=== PATIENT | male | born 1985 | race Caucasian/White ===

== ENCOUNTER 2023-12-11 09:00 | Outpatient (RCR) | payer OTHER, SELFPAY ==
--- NOTE | 2023-11-20 14:32 | OT.OP.EVAL ---
Visit Care Team Role Provider Type Sea Babb DO Attending Provider Non-Staff Family Provider Primary Care Provider Referring Provider Specialty: Family Practice Address: [address] [place] [address], [place], [address] Fax: Email: Occupational Therapy Initial Evaluation OT Outpatient Adult Evaluation Start: 11/20/23 09:47 Freq: Status: Active Protocol: Document 11/20/23 09:47 AMS (Rec: 11/20/23 09:48 AMS [id number]) General Information - Adult Visit Number [id number] Plan of Care Dates 11/20/23 - 01/01/24 Insurance Information Prime; *Auth x 12 visits Visit Start Time 09:00 Visit Stop Time 09:30 Treatment Setting Outpatient Care Note Type Initial Evaluation Referring Physician Sea Babb MD Reason for Referral [employer] w/ bilateral hand paresthesias concern for cubital tunnel syndrome Identification Confirmed Yes Identification Confirmed By Self Goals Short Term Goals 1. Francisco will demonstrate improved range of motion of L wrist which will support participation in meaningful activities: 1a. 0-60 degrees active L wrist ext vs initial 0-55 degrees active L wrist ext. Jail Goals 1. Francisco will be modified independent w/ execution of home exercise program utilizing written/visual instructions as needed. 2. Francisco will be able to verbalize understanding of activity modifications to prevent exacerbation of symptoms. Assessment/Plan Treatment Assessment Francisco is 38 y.o.; right hand dominant. He was referred to outpatient OT d/t bilateral hand paresthesias w/ concern for cubital tunnel syndrome. He is active duty ; he fufills a number of different roles. Symptoms have been present in L UE x 5 years; symptoms have been present in R UE for the past 6 months. He reports wearing CPAP machine at night; sleeps on back and awakes with both arms numb. He reported obtaining an EMG 7-8 months ago in [place] which confirmed R cubital tunnel syndrome diagnosis. Medical History Form completed; significant for back and neck pain and hearing problems. Whole Body Pain Assessment Grid completed; indication of 6-7 out of 10 pain relative to volar surfaces of elbow -> 4- 5th digits of hands bilaterally. 6-7 out of 10 pain relative to dorsal neck and middle spine. Hand/Wrist Pain Assessment Grid completed ; indication of 6-10 on pain scale relative to volar/dorsal surfaces of bilateral wrists and 4th/5th digits of the hand (s). QuickDASH UE Outcome Measure Score = 25.00; QuickDASH UE Work Module Score (P-3C Spray Pilot) = 50.00. Slight abd of the R 5th digit noted; (-) abd of the L 5th digit. Slight abduction of R 5th abd intermittently w/ tendon gliding as well. (+) flexion bilaterally of IPJs w/ lateral gibson pinch strength testing. Report of repoduction of symptoms of numbness with elbows bilaterally flexed w/ wrists in neutral. (-) clawing of fingers present. Goniometer Measurements = 0-63 degrees active R wrist ext vs 0-55 degrees active L wrist ext. 0-45 degrees active R wrist flex vs 0-48 degrees active L wrist flex. 0-25 degrees active bilateral wrist UD. 0-15 degrees active bilateral wrist [address]. Strength testing results = 5/5 for bilateral wrist flex, wrist ext, wrist RD, wrist UD. Dynamometer II loan examiner strength testing results w/ elbows in 90 degrees flexion = 75.0# of force R loan examiner (compared to 35- 39 y.o. male norms 119.7 +/- 24.0) vs 86.0# of force L loan examiner (compared to 35-39 y.o. male norms 112.9 +/- 21.7). Dynamometer II loan examiner strength testing results w/ elbows in extension = 99.0# of force R loan examiner vs 86.0# of force L loan examiner. Pinchometer strength testing results = 21.0# of force R lateral gibson pinch (compared to 35-39 y.o. male norms 26.1 +/ - 3.2) vs 24.0# of force ( compared to 35-39 y.o. male norms 25.6 +/- 3.9). 17.5# of force R 3-jaw pinch (compared to 35-39 y.o. male norms 26.2 +/- 4.1) vs 19.5# of force L 3 -jaw pinch (compared to 35-39 y.o. male norms 25.9 +/- 5.4). 12.5# of force R tip pinch ( compared to 35-39 y.o. male norms 18.0 +/- 3.6) vs 15.0# of force (compared to 35-39 y. o. male 17.7 +/- 3.8). Home Exercise Program 11/20/23 = Instructed in passive wrist flex w/ elbow in 90 degrees flex and forearm pronated and passive wrist ext w/ elbow in 90 degrees flex and forearm supinated w/ hold of 20-30 sec for each stretch, completed bilaterally. Instructed in alternative passive wrist ext stretch w/ elbow in 90 degrees flex and forearm supinated w/ use of TT , w/ again hold of 20-30 sec. Rec complete as needed. Rec consideration of Heelbo elbow cushion pad and limiting repetitive elbow flex/ext as able to do so. Length of treatment (weeks) 6 Plan of Care Start Date 11/20/23 Plan of Care End Date 01/01/24 Treatment Frequency Once a Week Therapeutic Contents Active Range of Motion, Adaptive Equipment Education, Functional Activities,Home Exercise Program,Joint Protection,Manual Therapy, Education,Neurodevelopment Treatment,Neuromuscular Re- Education,Self-Care,Stretching /Flexibility Activities, Therapeutic Activities, Therapeutic Exercises, Modalities Modalities As Needed,As Prescribed Additional Types of Modalities Heat/Ice/Contrast baths/ Ultrasound
--- NOTE | 2023-11-27 12:07 | OT.OP.TRT ---
Visit Care Team Role Provider Type Sea Babb DO Attending Provider Non-Staff Family Provider Primary Care Provider Referring Provider Specialty: Family Practice Address: [address] [place] [address], [place], [address] Fax: Email: Occupational Therapy Treatment Note OT Outpatient Treatment Note - Adult Start: 11/20/23 09:47 Freq: Status: Active Protocol: Document 11/27/23 11:51 AMS (Rec: 11/27/23 12:07 AMS [id number]) OT Outpatient Adult Treatment Note Session Time Visit Start Time 09:00 Visit Stop Time 09:40 Visit Information Visit Number [id number] Plan of Care Dates 11/20/23 - 01/01/24 Insurance Information Prime; *Auth x 12 visits Setting Treatment Setting Outpatient Care Visit Type Note Type Treatment Note General Information General Information Francisco is 38 y.o.; right hand dominant. He was referred to outpatient OT d/t bilateral hand paresthesias w/ concern for cubital tunnel syndrome. He is active duty ; he fufills a number of different roles. Symptoms have been present in L UE x 5 years; symptoms have been present in R UE for the past 6 months. He reports wearing CPAP machine at night; sleeps on back and awakes with both arms numb. He reported obtaining an EMG 7-8 months ago in [place] which confirmed R cubital tunnel syndrome diagnosis. Medical History Form completed; significant for back and neck pain and hearing problems. - Subjective Identification Type Name Identification Reconciled With Medical Record Observations Francisco was accompanied by one of his children to treatment session. Reported more discomfort of R elbow particularly when trying to sleep. Reported that Gabapentin was not helping. Difficulties w/ pulling circuit breakers; counts circuit breakers as a compensatory strategy. - Objective Objective Measurements Please refer to below for progress towards meeting established OT goals: Short Term Goals 1. Francisco will demonstrate improved range of motion of L wrist which will support participation in meaningful activities: 1a. 0-60 degrees active L wrist ext vs initial 0-55 degrees active L wrist ext. Senior Living Goals 1. Francisco will be modified independent w/ execution of home exercise program utilizing written/visual instructions as needed. 2. Francisco will be able to verbalize understanding of activity modifications to prevent exacerbation of symptoms. - Exercises 3 Descriptor Firm, blue theraputty. 2 Descriptor Passive ROM. Passive wrist ext bilaterally. Elbow flexion. Use of edge of TT. 20 sec hold. Passive wrist ext bilaterally. Elbow ext/forearm supination. Use of edge of TT. 20 sec hold. Passive wrist flex. Elbow ext/ forearm pronation. 20 sec hold . Completed bilaterally. Passive wrist RD w/ use of TT. Elbow near full ext/forearm pronation. 20 sec hold. Completed bilaterally. Passive wrist UD w/ use of TT. Elbow near full ext/forearm pronation. 20 sec hold. Completed bilaterally. Tendon glides. x 5 cycles. 1 Descriptor UEB x 7 minutes. Seated. - Assessment Assessment of Improvement Advanced HEP; provided w/ personal blue, firm theraputty for home use. Instructed in care and storage. (-) complaints of pain/discomfort w/ use of putty w/ various exercises. (-) signs of weakness observed w/ thumb abd , opposition, thumb/5th digit flex, or 5th digit abduction. Did briefly discuss use of towel to reduce elbow flex at night; reviewed avoiding static elbow flex, resting/ leaning on elbows positioned on hard surfaces, and repetitive elbow flex/ext. Advance as tolerated. Home Exercise Program 11/27/23 = Rec avoiding static elbow flexion posture, resting or leaning on elbow(s) onto hard surfaces, and repetitive elbow flex/ext. Rec trying to reduce elbow flex at night when sleeping. Provided w/ firm, blue theraputty; instructed in care and storage . Instructed in digit flex, thumb abd, 5th digit abd, thumb ext, lat gibson pinch, tip/ oppositional pinch, digit ext, hook fist w/ use of putty. Rec consideration of thicker width rubberband as an alt to putty w/ 'loop'/rosebud based exercises. Rec x 5-10 min per hand. 11/20/23 = Instructed in passive wrist flex w/ elbow in 90 degrees flex and forearm pronated and passive wrist ext w/ elbow in 90 degrees flex and forearm supinated w/ hold of 20-30 sec for each stretch, completed bilaterally. Instructed in alternative passive wrist ext stretch w/ elbow in 90 degrees flex and forearm supinated w/ use of TT , w/ again hold of 20-30 sec. Rec complete as needed. Rec consideration of Heelbo elbow cushion pad for during the day . - Plan Therapy Recommendations Advance per Rehabilitation Protocol
--- NOTE | 2023-12-11 10:45 | OT.OP.DC ---
Visit Care Team Role Provider Type Sea Babb DO Attending Provider Non-Staff Family Provider Primary Care Provider Referring Provider Address: [address] [place] [address], [place], [address] Fax: Email: OT Outpatient OT Outpatient Adult Evaluation Start: 11/20/23 09:47 Freq: Status: Active Protocol: Document 11/20/23 09:47 AMS (Rec: 11/20/23 09:48 AMS [id number]) General Information - Adult Visit Information Visit Number [id number] Plan of Care Dates 11/20/23 - 01/01/24 Insurance Information Prime; *Auth x 12 visits Session Time Visit Start Time 09:00 Visit Stop Time 09:30 Setting Treatment Setting Outpatient Care Visit Type Note Type Initial Evaluation Referral Referring Physician Sea Babb MD Reason for Referral [employer] w/ bilateral hand paresthesias concern for cubital tunnel syndrome Identification Identification Confirmed Yes Identification Confirmed By Self Goals Short Term Goals Short Term Goals 1. Francisco will demonstrate improved range of motion of L wrist which will support participation in meaningful activities: 1a. 0-60 degrees active L wrist ext vs initial 0-55 degrees active L wrist ext. Photographer Model Goals Photographer Model Goals 1. Francisco will be modified independent w/ execution of home exercise program utilizing written/visual instructions as needed. 2. Francisco will be able to verbalize understanding of activity modifications to prevent exacerbation of symptoms. Assessment/Plan Assessment Treatment Assessment Francisco is 38 y.o.; right hand dominant. He was referred to outpatient OT d/t bilateral hand paresthesias w/ concern for cubital tunnel syndrome. He is active duty ; he fufills a number of different roles. Symptoms have been present in L UE x 5 years; symptoms have been present in R UE for the past 6 months. He reports wearing CPAP machine at night; sleeps on back and awakes with both arms numb. He reported obtaining an EMG 7-8 months ago in [place] which confirmed R cubital tunnel syndrome diagnosis. Medical History Form completed; significant for back and neck pain and hearing problems. Whole Body Pain Assessment Grid completed; indication of 6-7 out of 10 pain relative to volar surfaces of elbow -> 4- 5th digits of hands bilaterally. 6-7 out of 10 pain relative to dorsal neck and middle spine. Hand/Wrist Pain Assessment Grid completed ; indication of 6-10 on pain scale relative to volar/dorsal surfaces of bilateral wrists and 4th/5th digits of the hand (s). QuickDASH UE Outcome Measure Score = 25.00; QuickDASH UE Work Module Score (P-3C Operations Representative) = 50.00. Slight abd of the R 5th digit noted; (-) abd of the L 5th digit. Slight abduction of R 5th abd intermittently w/ tendon gliding as well. (+) flexion bilaterally of IPJs w/ lateral gibson pinch strength testing. Report of repoduction of symptoms of numbness with elbows bilaterally flexed w/ wrists in neutral. (-) clawing of fingers present. Goniometer Measurements = 0-63 degrees active R wrist ext vs 0-55 degrees active L wrist ext. 0-45 degrees active R wrist flex vs 0-48 degrees active L wrist flex. 0-25 degrees active bilateral wrist UD. 0-[address] wrist [address]. Strength testing results = 5/5 for bilateral wrist flex, wrist ext, wrist RD, wrist UD. Dynamometer II sap bi developer strength testing results w/ elbows in 90 degrees flexion = 75.0# of force R sap bi developer (compared to 35- 39 y.o. male norms 119.7 +/- 24.0) vs 86.0# of force L sap bi developer (compared to 35-39 y.o. male norms 112.9 +/- 21.7). Dynamometer II sap bi developer strength testing results w/ elbows in extension = 99.0# of force R sap bi developer vs 86.0# of force L sap bi developer. Pinchometer strength testing results = 21.0# of force R lateral gibson pinch (compared to 35-39 y.o. male norms 26.1 +/ - 3.2) vs 24.0# of force ( compared to 35-39 y.o. male norms 25.6 +/- 3.9). 17.5# of force R 3-jaw pinch (compared to 35-39 y.o. male norms 26.2 +/- 4.1) vs 19.5# of force L 3 -jaw pinch (compared to 35-39 y.o. male norms 25.9 +/- 5.4). 12.5# of force R tip pinch ( compared to 35-39 y.o. male norms 18.0 +/- 3.6) vs 15.0# of force (compared to 35-39 y. o. male 17.7 +/- 3.8). Home Exercise Program 11/20/23 = Instructed in passive wrist flex w/ elbow in 90 degrees flex and forearm pronated and passive wrist ext w/ elbow in 90 degrees flex and forearm supinated w/ hold of 20-30 sec for each stretch, completed bilaterally. Instructed in alternative passive wrist ext stretch w/ elbow in 90 degrees flex and forearm supinated w/ use of TT , w/ again hold of 20-30 sec. Rec complete as needed. Rec consideration of Heelbo elbow cushion pad and limiting repetitive elbow flex/ext as able to do so. Plan Length of treatment (weeks) 6 Plan of Care Start Date 11/20/23 Plan of Care End Date 01/01/24 Treatment Frequency Once a Week Therapeutic Contents Active Range of Motion, Adaptive Equipment Education, Functional Activities,Home Exercise Program,Joint Protection,Manual Therapy, Education,Neurodevelopment Treatment,Neuromuscular Re- Education,Self-Care,Stretching /Flexibility Activities, Therapeutic Activities, Therapeutic Exercises, Modalities Modalities As Needed,As Prescribed Additional Types of Modalities Heat/Ice/Contrast baths/ Ultrasound Functional Wrist/Hand Scan Hand Side Sensory Assessment Sensory Profile2 OT Outpatient Treatment Note - Adult Start: 11/20/23 09:47 Freq: Status: Active Protocol: Document 12/11/23 10:39 AMS (Rec: 12/11/23 10:45 AMS [id number]) OT Outpatient Adult Treatment Note Session Time Visit Start Time 09:00 Visit Stop Time 09:45 Visit Information Visit Number 3 Plan of Care Dates 11/20/23 - 01/01/24 Insurance Information Prime; *Auth x 12 visits Setting Treatment Setting Outpatient Care Visit Type Note Type Treatment Note General Information General Information Francisco is 38 y.o.; right hand dominant. He was referred to outpatient OT d/t bilateral hand paresthesias w/ concern for cubital tunnel syndrome. He is active duty ; he fufills a number of different roles. Symptoms have been present in L UE x 5 years; symptoms have been present in R UE for the past 6 months. He reports wearing CPAP machine at night; sleeps on back and awakes with both arms numb. He reported obtaining an EMG 7-8 months ago in [place] which confirmed R cubital tunnel syndrome diagnosis. Medical History Form completed; significant for back and neck pain and hearing problems. 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 Patient/Caregiver Compliance with Home Good Exercise Program - Objective Objective Measurements Please refer to below for progress towards meeting established OT goals: Short Term Goals GOALS MET 0-60 degrees active L wrist ext vs initial 0-55 degrees active L wrist ext. *MET 0-60 degrees active L wrist ext; 0-62 degrees active R wrist ext. Photographer Model Goals GOALS MET Francisco will be modified independent w/ execution of home exercise program utilizing written/visual instructions as needed. *MET Francisco will be able to verbalize understanding of activity modifications to prevent exacerbation of symptoms. *MET 12/11/23 - Exercises 3 Descriptor Firm, blue theraputty. 2 Descriptor Passive ROM. Passive wrist ext bilaterally. Elbow ext/forearm supination. Use of edge of TT. 20 sec hold. Passive wrist flex. Elbow ext/ forearm pronation. 20 sec hold . Completed bilaterally. Passive wrist RD w/ use of TT. Elbow near full ext/forearm pronation. 20 sec hold. Completed bilaterally. Passive wrist UD w/ use of TT. Elbow near full ext/forearm pronation. 20 sec hold. Completed bilaterally. Passive wrist ext combined w/ elbow ext, forearm supination and UD. 20 sec hold. Completed bilaterally. Tendon glides. x 5 cycles. 1 Descriptor UEB x 10 minutes. Seated. - Assessment Assessment of Improvement Francisco has met all established OT goals; rec d/c from outpatient OT at this time. Home Exercise Program 12/11/23 = Instructed in passive wrist ext combined w/ elbow ext, forearm supination and UD . 20 -30 sec hold. Rec completing bilaterally. Daily and/or as needed. 11/27/23 = Rec avoiding static elbow flexion posture, resting or leaning on elbow(s) onto hard surfaces, and repetitive elbow flex/ext. Rec trying to reduce elbow flex at night when sleeping. Provided w/ firm, blue theraputty; instructed in care and storage . Instructed in digit flex, thumb abd, 5th digit abd, thumb ext, lat gibson pinch, tip/ oppositional pinch, digit ext, hook fist w/ use of putty. Rec consideration of thicker width rubberband as an alt to putty w/ 'loop'/creek based exercises. Rec x 5-10 min per hand. 11/20/23 = Instructed in passive wrist flex w/ elbow in 90 degrees flex and forearm pronated and passive wrist ext w/ elbow in 90 degrees flex and forearm supinated w/ hold of 20-30 sec for each stretch, completed bilaterally. Instructed in alternative passive wrist ext stretch w/ elbow in 90 degrees flex and forearm supinated w/ use of TT , w/ again hold of 20-30 sec. Rec complete as needed. Rec consideration of Heelbo elbow cushion pad for during the day . - Plan Therapy Recommendations Advance per Rehabilitation Protocol,Discharge from Occupational Therapy
== END 2023-12-17 09:42 | disposition home or self-care (01) ==
LOC: OT 09:00
PROVIDERS: Family Provider Student in an Organized Health Care Education/Training Program; PCP Student in an Organized Health Care Education/Training Program; Referring Provider Student in an Organized Health Care Education/Training Program; Visit Provider Student in an Organized Health Care Education/Training Program
DX: R20.2 Paresthesia of skin (principal)
CPT/HCPCS: 97110; 97165